=== PATIENT | female | born 1980 | race Two or more races ===

== ENCOUNTER 2025-04-03 07:02 | Day surgery (SDC) | payer OTHER ==
[2025-03-31 13:29] VITALS: BP 143/82
[~2025-04-03] VITALS: Ht 157.5 cm; Wt 72.6 kg
[2025-04-03] MEDS ORDERED: CEFTRIAXONE SODIUM 2,000 MG VIAL IV ONE (08:30)
[2025-04-03] MEDS ORDERED: BUPIVACAINE HCL/PF 0.25% 30ML VIAL InF ONE (08:30)
[2025-04-03] MEDS ORDERED: METRONIDAZOLE/SODIUM CHLORIDE 500 MG/100 ML PIGGYBACK IV ONE (08:30)
[2025-04-03] MEDS ORDERED: HEMOSTATIC MATRIX 1 KIT KIT TOP ONE (08:30)
[2025-04-03] MEDS ORDERED: DIBUCAINE 30 GM TUBE RECTAL ONE (08:30)
[2025-04-03] MEDS ORDERED: LIDOCAINE HCL 1%/EPINEPHRINE 20ML VIAL IJ ONE (08:30)
[2025-04-03] MEDS ORDERED: HYDROGEN PEROXIDE 118 ML SOLUTION TOP ONE (10:15)
[2025-04-03] MEDS ORDERED: OXYCODONE HCL5 MG PO (10:41)
[2025-04-03] MEDS ORDERED: TAMSULOSIN HCL 0.4 MG CAP PO ONE (10:45)
== END 2025-04-03 18:00 | disposition home or self-care (01) ==
LOC: CIR.AMB 07:02
PROVIDERS: ATTEND Surgery
DX: K60.322 Anal fistula, complex, persistent (principal); K62.89 Other specified diseases of anus and rectum; Z91.013 Allergy to seafood